=== PATIENT | male | born 1990 | race Caucasian/White ===

== ENCOUNTER 2017-05-27 21:06 | Emergency (ER) | payer BC ==
[~2017-05-27] VITALS: Ht 193 cm; Wt 142.2 kg
[2017-05-27 21:16] VITALS: TEMP 36.9; Ht 193 cm; Wt 142.2 kg
[2017-05-27] MEDS ORDERED: CEFTRIAXONE SOD INJ 1 GM ADDVIAL IV STA (21:54)
[2017-05-27 22:24] LABS: BASO % 0.3 %; BASO ABS # 0.03 K/uL (0-0.2); COMPLETE YES; EOS % 1.8 %; HEMATOCRIT 48.6 % (42-52); IG% 0.2 %; LYMPH % 19.4 %; LYMPH ABS # 2.03 K/uL (1.2-3.4); MEAN CELL VOLUME 92.4 fL (80-100); MEAN CORPUSCULAR HEMOGLOBIN 31.7 pg (25-34); MEAN CORPUSCULAR HGB CONC 34.4 g/dl (32-36); MEAN PLATELET VOLUME 10.8 fL (7.4-10.4); MONO % 6.6 %; NEUT % 71.7 %; PLATELET COUNT 200 K/uL (130-400); RED BLOOD COUNT 5.26 M/uL (4.7-6.1); WHITE BLOOD COUNT 10.46 K/uL (4.8-10.8)
[2017-05-27] MEDS ORDERED: MULT-506 PO (22:24)
[2017-05-27 22:41] LABS: BUN/CREATININE RATIO 20.9 (10-20); CALCIUM 8.7 mg/dl (8.5-10.1); CREATININE 0.97 mg/dl (0.60-1.40); POTASSIUM 3.5 mmol/L (3.5-5.1)
--- NOTE | 2017-05-27 22:58 | DIAGNOSTIC IMAGING REPORT ---
ULTRASOUND RIGHT UPPER EXTREMITY VENOUS CLINICAL HISTORY: Right arm swelling. COMPARISON STUDY: No priors. TECHNIQUE: Real-time, grayscale, and color Doppler sonography of the deep veins of the right upper extremity is performed. Compression and augmentation were utilized. FINDINGS: There is no sonographic evidence of deep venous thrombosis identified in the right upper extremity. The right internal jugular, axillary, and brachial veins are patent and normally compressible. Normal venous waveforms and augmentation are seen within the right subclavian vein. The cephalic and basilic veins are clear. The visualized radial and ulnar veins are patent. IMPRESSION: There is no sonographic evidence of deep venous thrombosis identified in the right upper extremity. Electronically signed by: Baldemar Moore M.D. 05/27/2017 10:57 PM Dictated Date/Time: 05/27/2017 10:57 PM
[2017-05-27 23:05] VITALS: O2SAT 96
--- NOTE | 2017-05-27 23:20 | DIAGNOSTIC IMAGING REPORT ---
ULTRASOUND RIGHT UPPER EXTREMITY NONVASCULAR CLINICAL HISTORY: Right arm swelling. COMPARISON STUDY: No priors. FINDINGS: Real-time, grayscale, and color flow sonography of the soft tissues in the region of the right biceps is performed at the indicated site of interest. Subcutaneous soft tissue edema is identified at this site. No organized fluid collection is seen to suggest abscess. The underlying musculature is normal in appearance. IMPRESSION: Subcutaneous soft tissue edema is identified in the right arm at the site of interest. No organized fluid collection is seen to suggest abscess. Electronically signed by: Baldemar Moore M.D. 05/27/2017 11:19 PM Dictated Date/Time: 05/27/2017 11:18 PM
[2017-05-27] MEDS ORDERED: CEPH500C2 PO (23:45)
[2017-05-27] MEDS ORDERED: CEPHALEXIN 500MG HOME PACK 1 EA BTL PO ONE (23:45)
[2017-05-27 23:58] VITALS: BP 151/85; PULSE 96
--- NOTE | 2017-05-28 07:27 | EMERGENCY ROOM VISIT NOTE ---
History First contact with patient: 21:48 Chief Complaint: INFECTION Stated Complaint: ABCESS ON R ARM Nursing Triage Summary: PT had im injection last wed to right arm. TDap, PT now has hard bump noted with redness. PT states "I think it is an abscess" PT has no warmth to area and denies any fever/chills History of Present Illness The patient is a 26 year old male who presents to the Emergency Room with complaints of right bicep pain and swelling for the past day who had a tetanus shot a week ago to this arm in a different location. He scribed the pain as throbbing, ranging in severity currently 4 out of 10. Palpation is worse nothing makes it better. It does not radiate. Patient denies chest pain, dyspnea, fever, chills, numbness, tingling, throat tightness, nausea, vomiting. No history of allergic reactions the past. He received this shot over a week ago. Symptoms started yesterday. Review of Systems A 6 system review of systems was completed with positives and pertinent negatives listed in the HPI. Past Medical/Surgical History None Social History Smoking Status: Never Smoker Smokeless Tobacco Use: No Drug Use: none Occupation Status: employed Current/Historical Medications Scheduled Cephalexin Monohydrate (Keflex), 500 MG PO QID Multivitamin (Multivitamin), 1 TAB PO DAILY Physical Exam Vital Signs Date Time Temp Pulse Resp B/P (MAP) Pulse Ox O2 Delivery O2 Flow Rate FiO2 05/27/17 23:58 96 18 151/85 05/27/17 23:05 93 16 163/93 96 Room Air 05/27/17 21:16 36.9 100 18 167/99 99 Room Air Physical Exam VITALS: Vitals are noted on the nurse's note and reviewed by myself. Vital signs hypertensive. GENERAL: Pleasant male, in no acute distress, nondiaphoretic, well-developed well-nourished. SKIN: Capillary reflex less than 2 seconds. Right deltoid region with small indurated area of 1 cm x 1 cm and patient states this is the area where he received his tetanus shot and right bicep region erythematous and edematous concerning for possible cellulitis is warm to touch without lymphangitis or axilla lymph node enlargement. Radial pulses +2 equal present bilaterally. HEENT: Normocephalic. PERRLA. EOMI. Nares patent. Mucous membranes moist. Neck is supple without nuchal rigidity. HEART: Regular rate and rhythm without murmurs gallops or rubs. LUNGS: Clear to auscultation bilaterally without wheezes, rales or rhonchi. No retractions or accessory muscle use. ABDOMEN: Positive bowel sounds x 4. Normal tympanic percussion. Soft, nontender, without masses or organomegaly. Martínez sign negative. No guarding or rebound tenderness. MUSCULOSKELETAL: No gross musculoskeletal defects. NEURO: Patient was alert and oriented to person place and time. Normal sensation to light and sharp touch. No focal neurological deficits. Medical Decision & Procedures Laboratory Results 05/27/17 22:08 Red Blood Count 5.26, Mean Corpuscular Volume 92.4, Mean Corpuscular Hemoglobin 31.7, Mean Corpuscular Hemoglobin Concent 34.4, Mean Platelet Volume 10.8, Neutrophils (%) (Auto) 71.7, Lymphocytes (%) (Auto) 19.4, Monocytes (%) (Auto) 6.6, Eosinophils (%) (Auto) 1.8, Basophils (%) (Auto) 0.3, Neutrophils # (Auto) 7.50, Lymphocytes # (Auto) 2.03, Monocytes # (Auto) 0.69, Eosinophils # (Auto) 0.19, Basophils # (Auto) 0.03 05/27/17 22:08 Test 05/27/17 22:08 White Blood Count 10.46 K/uL (4.8-10.8) Red Blood Count 5.26 M/uL (4.7-6.1) Hemoglobin 16.7 g/dL (14.0-18.0) Hematocrit 48.6 % (42-52) Mean Corpuscular Volume 92.4 fL (80-100) Mean Corpuscular Hemoglobin 31.7 pg (25-34) Mean Corpuscular Hemoglobin Concent 34.4 g/dl (32-36) Platelet Count 200 K/uL (130-400) Mean Platelet Volume 10.8 fL (7.4-10.4) Neutrophils (%) (Auto) 71.7 % Lymphocytes (%) (Auto) 19.4 % Monocytes (%) (Auto) 6.6 % Eosinophils (%) (Auto) 1.8 % Basophils (%) (Auto) 0.3 % Neutrophils # (Auto) 7.50 K/uL (1.4-6.5) Lymphocytes # (Auto) 2.03 K/uL (1.2-3.4) Monocytes # (Auto) 0.69 K/uL (0.11-0.59) Eosinophils # (Auto) 0.19 K/uL (0-0.5) Basophils # (Auto) 0.03 K/uL (0-0.2) RDW Standard Deviation 47.2 fL (36.4-46.3) RDW Coefficient of Variation 13.9 % (11.5-14.5) Immature Granulocyte % (Auto) 0.2 % Immature Granulocyte # (Auto) 0.02 K/uL (0.00-0.02) Anion Gap 6.0 mmol/L (3-11) Est Creatinine Clear Calc Drug Dose 176.3 ml/min Estimated GFR () 123.5 Estimated GFR (Non- 106.6 BUN/Creatinine Ratio 20.9 (10-20) Calcium Level 8.7 mg/dl (8.5-10.1) Medications Administered Medications (Trade) Dose Ordered Sig/Romain Route Start Time Stop Time Status Last Admin Dose Admin Ceftriaxone Sodium (Rocephin Inj) 1 gm NOW STAT IV 05/27/17 21:54 05/27/17 21:56 DC 05/27/17 22:20 1 GM Cephalexin Monohydrate (Keflex 500MG Home Pack) 1 homepack NOW ONCE PO 05/27/17 23:45 05/27/17 23:46 DC 05/27/17 23:49 1 HOMEPACK ED Course Prior records reviewed and summarized as above. Triage Nursing notes reviewed. The patient's history was concerning for swelling and redness of the skin. Differential diagnosis: Etiologies such as cellulitis, allergic reaction, abscess, MRSA infection, DVT, necrotizing fasciitis, dermatitis, drug eruption, as well as others were entertained.. Physical examination: The physical examination was consistent with cellulitis ER treatment provided: Rocephin On reassessment the patient felt better. Diagnostics interpreted by me: The labs revealed stable H&H. Imaging studies: Ultrasound negative for DVT or abscess This appears to be isolated cellulitis. This does not appear to be allergic reaction to the tetanus shot. This is in a different location. Patient was advised to take antibiotics as directed and to follow-up with family care in a few days or here in the ER sooner for fevers, spreading of infection, chest pain , worsening signs or symptoms or as needed. Patient had no DVT. No palpable abscess. No leukocytosis. Stable H&H. By the evaluation outlined above emergent etiologies such as abscess, necrotizing fasciitis, DVT, as well as others were deemed relatively unlikely. The pt informed about the findings as listed above. All questions were answered and pleased with the treatment. Return instructions were outlined and the patient was discharged in stable condition. Outpatient prescription management: Keflex Referral: The patient was referred back to primary care physician for follow-up in 2 to 3 days for a recheck of the current condition. Case reviewed with my attending. Medical Decision As above Blood Pressure Screening Patient's blood pressure: Elevated blood pressure Blood pressure disposition: Referred to PCP Impression Primary Impression: Cellulitis of right upper extremity Departure Information Dispostion Home / Self-Care Condition GOOD Prescriptions Cephalexin Monohydrate (KEFLEX) 500 Mg Cap 500 MG PO QID for 9 Days, #36 CAP Prov: Tameka Mcintosh .LEIGH 05/27/17 Forms WORK / SCHOOL INSTRUCTIONS, HOME CARE DOCUMENTATION FORM, IMPORTANT VISIT INFORMATION Patient Instructions Cellulitis - [facility], [facility] Additional Instructions Cephalexin(Keflex) 500mg: Take one pill four times daily for 10 days for your skin infection. All antibiotics can cause diarrhea. If this occurs and you feel worse or it does not resolve in 1-2 days follow up with your doctor or return to the Emergency Department as this could be signs of serious underlying problems. Any medication can cause an allergic reaction, stop the pills immediately and return to the ER for rash, hives, breathing difficulties, or swelling. Ibuprofen(Motrin, Advil) may be used for fever or pain. Use 600mg every six hours as needed. Take with food. Avoid using more than 2400mg in a 24 hour period. Do not use 2400mg per day for more than three consecutive days without physician direction. Prolonged inappropriate use can lead to stomach upset or ulcers. (AND/OR) Acetaminophen(Tylenol) may be used for fever or pain. Use 1000mg every six hours as needed. Avoid using more than 3000mg in a 24 hour period. Warm compresses to the affected area 4 times daily for 15-20 minutes. Rest and drink plenty of fluids. Continue current medications. Return to the ER for severe pain, persistent fevers, spreading redness, or any worsening of your condition. Follow up with your primary physician within 2-3 days for a recheck of the current condition.
== END 2017-05-28 00:02 | disposition home or self-care (01) ==
LOC: C.EDB 21:07 → C.EDD 05-28 00:02
DX: L03.113 Cellulitis of right upper limb (principal)